=== PATIENT | male | born 1980 | race Caucasian/White ===

== ENCOUNTER 2017-08-09 10:23 | Emergency (ER) | payer SELFPAY | END 2017-08-09 11:55 | disposition home or self-care (01) | LOC: D.ER 10:23 | DX: S67.21XA Crushing injury of right hand, initial encounter (principal); W22.01XA Walked into wall, initial encounter; Y93.89 Activity, other specified; Y92.029 Unspecified place in mobile home as the place of occurrence of the external cause; F41.9 Anxiety disorder, unspecified ==

== ENCOUNTER 2017-11-25 15:22 | Emergency (ER) | payer OTHER | END 2017-11-25 16:33 | disposition left against medical advice (07) | LOC: D.ER 15:22 | DX: T24.202A Burn of second degree of unspecified site of left lower limb, except ankle and foot, initial encounter (principal); T24.201A Burn of second degree of unspecified site of right lower limb, except ankle and foot, initial encounter; T31.0 Burns involving less than 10% of body surface; Y92.019 Unspecified place in single-family (private) house as the place of occurrence of the external cause; Y93.89 Activity, other specified; X19.XXXA Contact with other heat and hot substances, initial encounter; F17.200 Nicotine dependence, unspecified, uncomplicated ==

== ENCOUNTER → 2019-01-16 08:51 | Outpatient (CLI) | payer OTHER | END | disposition home or self-care (01) | LOC: D.RAD 12-29 08:00 | PROVIDERS: ATTEND Pediatrics | DX: Z02.71 Encounter for disability determination (principal) ==

== ENCOUNTER → 2019-08-31 12:09 | Outpatient (CLI) | payer OTHER ==
[~2019-08-31 12:09] MED LIST: CYCLOBENZAPRINE10 MG PO; GEODON60 MG PO; XANAX2 MG PO
[2019-09-02 23:01] VITALS: BMI 36.0
== END | disposition home or self-care (01) ==
LOC: D.MRI 12:09
PROVIDERS: ATTEND Clinical Nurse Specialist Family Health
DX: M25.571 Pain in right ankle and joints of right foot (principal)

== ENCOUNTER 2019-09-02 14:24 | Observation (INO) | payer OTHER ==
[~2019-09-02] VITALS: Ht 188 cm; Wt 127.3 kg
[2019-09-02 15:57] LABS: BASOPHILS 0.7 % (0-2); EOSINOPHILS 2.2 % (0-7); HEMATOCRIT 49.6 % (42.0-54.0); HEMOGLOBIN 17.3 g/dL (13.5-17.5); IMMATURE GRANULOCYTES 0.2 % (0-5); LYMPHOCYTES 19.8 % (15-50); MCH 33.5 pg (26.0-34.0); MCHC 34.9 g/dL (31.0-37.0); MCV 95.9 fL (80.0-100.0); MEAN PLATELET VOLUME 10.1 fL (7.4-10.4); NEUTROPHILS 69.1 % (40-80); PLATELET COUNT 245 10x3/uL (130-400); RBC 5.17 10x6/uL (4.20-6.10); RDW 14.8 % (11.5-14.5); WBC 8.6 10x3/uL (4.8-10.8)
[2019-09-02 16:01] LABS: CALC OSMOLALITY 282 mosm/kg (275-300); CALCIUM 10.4 mg/dL (8.5-10.1); CARBON DIOXIDE 30.7 mmol/L (21.0-32.0); CHLORIDE - SERUM 102 mmol/L (98-107); CREATININE - SERUM 1.4 mg/dL (0.6-1.3); GLUCOSE 99 mg/dL (74-106); SODIUM 141 mmol/L (136-145); UREA NITROGEN 18 mg/dL (7-18); eGFR NON AFRICAN AMERICAN 60 mL/min (90-120)
[2019-09-02 16:16] LABS: ALBUMIN 3.7 g/dL (3.4-5.0); ALKALINE PHOSPHATASE 81 U/L (46-116); ALT (SGPT) 19 U/L (10-68); BILIRUBIN - TOTAL 0.35 mg/dL (0.2-1.3); CKMB 0.8 U/L (0.0-3.6); CREATINE KINASE 95 UL (21-232); PROTEIN - SERUM 8.2 g/dL (6.4-8.2); TROPONIN-I 0.019 ng/mL (0.000-0.060)
[2019-09-02 16:56] VITALS: BP 130/85
[2019-09-02] MEDS ORDERED: GEODON60 MG PO (19:53)
[2019-09-02] MEDS ORDERED: XANAX2 MG PO (19:54)
[2019-09-02 20:05] VITALS: BP 131/82
--- NOTE | 2019-09-02 21:46 | NUR ---
CARBOXYHEMOGLOBIN RESULT RECEIVED FROM [facility] OF 4.3 REPORTED TO BRADY ARAUJO APRN
--- NOTE | 2019-09-02 22:45 | NUR ---
RECIEVED REPORT FROM POOJA FELIZ. PT ARRIVED BY WHEELCHAIR. AAOX3, WITH MINIMAL RESTLESSNESS. VSS. NO S/S OF RT DISTRESS. FAMILY AT BEDSIDE. PT STATES HE WILL LIKE TO GO OUT TO SMOKE, EVEN AFTER NICOTINE PATCH WAS ORDERED. NOTIFIED REY ABREU. RYE STATES XANAX AND GEODON IS BEEN ORDERED FOR PT AND PT IS NOT ALLOWED TO GO OUT TO SMOKE AFTER THESE MEDS ARE ADMINISTERED. PT VOICED UNDERSTANDING. ORTHOPAEDIC DOCTOR ALSO NOTIFIED ABOUT PT'S WANTING TO GO SMOKE AFTER RECIEVING HIS MEDS. GEODON AND ATIVAN GIVEN PER PROVIDERS ORDER. SANDWICH PROVIDED PER PT'S ORDER. 2L NC PROVIDED FOR COMFORT, PER [employer]S ORDER.INITIAL ASSESSMENT COMP. PT DENIES ANY FURTHER NEEDS AT THIS TIME. WILL CPOC. CL WITHIN REACH, BED IN LOW, SR UP X2. PIV 20G TO LEFT AC PATENT AND INTACT.
[2019-09-02] MEDS ORDERED: CYCLOBENZAPRINE10 MG PO (23:00)
[2019-09-02 23:01] VITALS: BP 127/85; Ht 188 cm; Wt 127.3 kg
[2019-09-03 04:56] VITALS: BP 126/67
[2019-09-03 06:20] LABS: BASOPHILS 0.5 % (0-2); EOSINOPHILS 2.7 % (0-7); HEMATOCRIT 48.2 % (42.0-54.0); HEMOGLOBIN 16.2 g/dL (13.5-17.5); IMMATURE GRANULOCYTES 0.1 % (0-5); LYMPHOCYTES 23.5 % (15-50); MCH 32.6 pg (26.0-34.0); MCHC 33.6 g/dL (31.0-37.0); MEAN PLATELET VOLUME 10.4 fL (7.4-10.4); MONOCYTES 9.6 % (2-11); NEUTROPHILS 63.6 % (40-80); PLATELET COUNT 230 10x3/uL (130-400); RBC 4.97 10x6/uL (4.20-6.10); RDW 14.9 % (11.5-14.5); WBC 10.4 10x3/uL (4.8-10.8)
[2019-09-03 06:28] LABS: ANION GAP 9.6 mmol/L (8-16); CALCIUM 8.8 mg/dL (8.5-10.1); CARBON DIOXIDE 29.2 mmol/L (21.0-32.0); CREATININE - SERUM 1.2 mg/dL (0.6-1.3); MAGNESIUM - SERUM 1.9 mg/dL (1.8-2.4); PHOSPHOROUS 5.1 mg/dL (2.5-4.9); POTASSIUM - SERUM 3.8 mmol/L (3.5-5.1)
--- NOTE | 2019-09-03 07:38 | NUR ---
REPORT RECEIVED. WILL CONTINUE WITH POC. PT CURRENTLY LYING SUPINE. CALL LIGHT W/I REACH. FRIEND AT BEDSIDE. PT IS AAO AND UP AD BELTRAN. UPON ENTERING THE ROOM, PT WAS DEMANDING TO GO SMOKE AND FOR HIS XANAX AND GEODON. INSTRUCTED THE PT THAT HE WAS NOT ALLOWED TO LEAVE THE FLOOR TO GO SMOKE. HE VERBALIZED UNDERSTANDING. NS INFUSING @70ML/HR VIA L.AC PIV. PT DENIES ANY NEEDS. NO S/S OF DISTRESS NOTED. WILL CTM.
[2019-09-03 12:20] VITALS: BP 118/64
[2019-09-03 12:27] VITALS: BP 144/83
--- NOTE | 2019-09-03 12:57 | NUR ---
BLOOD DRAWN, SENT TO [facility] FOR COHb TEST COHb 2.5
[2019-09-03 15:58] VITALS: BP 118/64
--- NOTE | 2019-09-03 16:12 | NUR ---
I have reviewed this patient and I concur with the Shift Assessment completed by the Licensed Practical Nurse today this shift.
--- NOTE | 2019-09-03 18:10 | NUR ---
PT LYING SEMI FOWLERS. CALL LIGHT W/I REACH. FAMILY AT BEDSIDE. PT UP AND WALKING THE HALLS PERIODICALLY. NO S/S OF DISTRESS NOTED. WILL CTM.
--- NOTE | 2019-09-03 19:10 | NUR ---
BEDSIDE REPORT RECEIVED FROM DAY SHIFT, PT CARE ASSUMED. INTRODUCED SELF AND WROTE NAME ON BOARD. PT TO RESTROOM. DENIES ANY NEEDS AT THIS TIME. BED IN LOWEST POSITION, SR X2, CALL LIGHT WITHIN REACH. WILL CONTINUE TO MONITOR.
--- NOTE | 2019-09-03 20:28 | NUR ---
NIGHT TIME MEDS ADMINISTERED, PER ORDER. DENIES ANY OTHER NEEDS AT THIS TIME. BED IN LOWEST POSITION, SR X2, CALL LIGHT WITHIN REACH. FAMILY AT BEDSIDE. WILL CONTINUE TO MONITOR.
[2019-09-03 20:39] VITALS: BP 148/96
--- NOTE | 2019-09-03 21:01 | NUR ---
PT AMBULATING OUTSIDE "TO SMOKE", PER PT, WITH FAMILY.
--- NOTE | 2019-09-03 21:22 | NUR ---
TRISTON, PENCILS WASHER, SPOKE WITH REY ABREU, REGARDING PT LEAVING FLOOR AFTER NIGHT TIME MEDS ADMINISTERED. TRISTON ADVISED PT OF FALL RISK REGARDING MEDICATIONS, ALSO, IF HE FEELS WELL ENOUGH TO LEAVE THE FLOOR AND SMOKE, THEN HE WAS WELL ENOUGH TO GO HOME. WILL CONTINUE TO MONITOR.
--- NOTE | 2019-09-03 22:04 | NUR ---
ASSUME PT CARE AT THIS TIME. PT IN BED, VSS, AAOX4. NO S/S OF RT DISTRESS. WILL CPOC.
[2019-09-04 00:15] VITALS: BP 140/91
[2019-09-04 04:45] VITALS: BP 135/84
[2019-09-04 05:45] LABS: BASOPHILS 0.4 % (0-2); EOSINOPHILS 2.7 % (0-7); HEMOGLOBIN 15.1 g/dL (13.5-17.5); IMMATURE GRANULOCYTES 0.2 % (0-5); LYMPHOCYTES 20.9 % (15-50); MCH 32.2 pg (26.0-34.0); MCHC 32.8 g/dL (31.0-37.0); MCV 98.1 fL (80.0-100.0); MONOCYTES 8.9 % (2-11); NEUTROPHILS 66.9 % (40-80); PLATELET COUNT 226 10x3/uL (130-400); RBC 4.69 10x6/uL (4.20-6.10); RDW 14.9 % (11.5-14.5); WBC 8.1 10x3/uL (4.8-10.8)
[2019-09-04 06:18] LABS: CALC OSMOLALITY 281 mosm/kg (275-300); CALCIUM 8.8 mg/dL (8.5-10.1); CARBON DIOXIDE 24.5 mmol/L (21.0-32.0); CHLORIDE - SERUM 104 mmol/L (98-107); CREATININE - SERUM 1.1 mg/dL (0.6-1.3); GLUCOSE 155 mg/dL (74-106); MAGNESIUM - SERUM 1.9 mg/dL (1.8-2.4); PHOSPHOROUS 3.9 mg/dL (2.5-4.9); POTASSIUM - SERUM 3.5 mmol/L (3.5-5.1); SODIUM 139 mmol/L (136-145); UREA NITROGEN 15 mg/dL (7-18); eGFR NON AFRICAN AMERICAN 79 mL/min (90-120)
--- NOTE | 2019-09-04 06:46 | NUR ---
PT CAUGHT FOR 2 TIME THIS SHIFT COMING FROM OUTSIDE SMOKING. PT WAS TOLD SERVAL TIMES THIS SHIFT BY MYSELF AND Ana Maria ARAUJO APN THAT HE CANT LEAVE THE UNIT TO SMOKE DUE TO HIS MEDICATIONS. ALSO HAS A NICOTINE PATCH THAT WAS APPLIED YESTERDAY AM. EXPLAINED TO PT ABOUT HIS MEDS AND THE PATCH PLUS HIS DIAGNOIS THAT HE SHOULD NOT SMOKE. PT CONFESSED TO REMOVING THE PATCH HIMSELF SO HE CAN SMOKE.
[2019-09-04 07:50] VITALS: BP 130/87
--- NOTE | 2019-09-04 08:15 | NUR ---
LEFT AC 20G IV DC'D WITH CATH INTACT. DISCHARGE INSTRUCTIONS GIVEN AND EXPLAINED TO PT. HE VERBALIZED UNDERSTANDING. DISCHARGE PAPERS SIGNED. PT REFUSED WC. PT WALKED OUT OF HOSPITAL.
--- NOTE | 2019-09-04 16:16 | MORECARE ---
CASE MANAGEMENT DISCHARGE SUMMARY PATIENT: DAGOBERTO STANLEY JR UNIT: [id number] ADM DATE: 09/02/19 AGE: 39 : 82 SEX: M ROOM/BED: D.2102 AUTHOR: YADIRA LORD PHYSICIAN: REFERRING PHYSICIAN: LOW ORDONEZ MD DATE OF SERVICE: 09/04/19 Discharge Plan Patient Name: DAGOBERTO STANLEY Facility: [facility]:[place] : 1980 Planned Disposition: Home Anticipated Discharge Date: 09/04/19 Discharge Date: 09/04/2019 Expected LOS: 2 Initial Reviewer: [email or web address] Initial Review Date: 09/04/2019 Generated: 09/04/19 5:16 pm Patient Name: DAGOBERTO STANLEY Page [id number] at 1616 All edits/amendments must be made on the electronic document DICTATION DATE: 09/04/19 1616 BARREL ENDSHAKER ADJUSTER: GRETEL 09/04/19 161 RPT#: [id number] DC DATE:09/04/19 STATUS: DIS IN [facility] [address] [place] [address] END OF REPORT
== END 2019-09-04 08:21 | disposition home or self-care (01) ==
LOC: D.ER 14:24 → OBSVTIME 17:47 → D.M2 17:47
PROVIDERS: Family Medicine; ADMIT Internal Medicine Nephrology; ATTEND Internal Medicine Nephrology
DX: T58.91XA Toxic effect of carbon monoxide from unspecified source, accidental (unintentional), initial encounter (principal); N17.9 Acute kidney failure, unspecified; F17.203 Nicotine dependence unspecified, with withdrawal; K21.9 Gastro-esophageal reflux disease without esophagitis; F41.9 Anxiety disorder, unspecified; F20.9 Schizophrenia, unspecified